=== PATIENT | male | born 1960 | race Caucasian/White ===

== ENCOUNTER → 2021-04-07 | Outpatient (CLI) | payer OTHER ==
--- NOTE | 2021-04-07 11:52 | Diagnostic Imaging Report ---
Indication: Left hip pain 2 views of left hip show no fracture, dislocation or other acute abnormality. Joint space appears normal. IMPRESSION: Negative left hip Dictated by: Dictated on workstation # [id number]
--- NOTE | 2021-04-07 11:54 | Diagnostic Imaging Report ---
Indication: Right hip pain 2 views the right hip show no fracture, dislocation or other acute abnormalities. Joint space is well-maintained. IMPRESSION: Negative right hip Dictated by: Dictated on workstation # [id number]
== END ==
LOC: RAD FS 11:37
PROVIDERS: ATTEND Family Medicine
DX: M16.0 Bilateral primary osteoarthritis of hip (principal)
CPT/HCPCS: 73502